=== PATIENT | male | born 1960 | race Caucasian/White ===

== ENCOUNTER → 2018-02-16 | Outpatient (CLI) | payer OTHER | LOC: M LAB 14:13 | DX: N20.0 Calculus of kidney (principal) | CPT/HCPCS: 74018 ==

== ENCOUNTER 2022-10-30 19:21 | Inpatient (IN) | payer OTHER ==
[2022-10-30] MEDS ORDERED: NS 1,000 ML IV ONE (19:25)
[2022-10-30 19:46] LABS: VENOUS BASE EXCESS -0.4 (-2.0-2.0); VENOUS HCO3 24.9 MMOL/L (23.0-27.0); VENOUS O2 SATURATION 94.4 % (60.0-80.0); VENOUS PARTIAL PRESSURE CO2 43.1 mmHg (38.0-50.0); VENOUS PARTIAL PRESSURE O2 71.4 mmHg (30.0-50.0); VENOUS TOTAL CO2 26.2 MMOL/L (24.0-28.0)
[2022-10-30 19:48] LABS: BASO # 0.1 10^3/uL (0.0-0.2); BASO % 0.7 % (0.0-1.0); EOS # 0.1 10^3/uL (0.0-0.5); EOS % 0.6 % (0.0-3.0); HEMATOCRIT 50.5 % (42.0-52.0); HEMOGLOBIN 17.4 g/dl (13.5-17.5); LYMPH # 1.8 10^3/uL (1.5-5.0); LYMPH % 16.6 % (24.0-44.0); MEAN CORPUSCULAR HEMOGLOBIN 30.6 pg (27.0-33.0); MEAN CORPUSCULAR HGB CONC 34.5 g/dl (32.0-36.5); MEAN CORPUSCULAR VOLUME 88.9 fl (80.0-96.0); MONO # 0.8 10^3/uL (0.0-0.8); MONO % 7.4 % (2.0-8.0); NEUTROPHILS # 8.2 10^3/uL (1.5-8.5); NEUTROPHILS % 74.1 % (36.0-66.0); PLATELET COUNT, AUTOMATED 208 10^3/uL (150-450); RED BLOOD COUNT 5.68 10^6/uL (4.30-6.10); WHITE BLOOD COUNT 11.1 10^3/uL (4.0-10.0)
[2022-10-30] MEDS ORDERED: CHARCOAL ACTIVATED LIQUID 25GM/120ML BTL PO ONE (20:10)
[2022-10-30 20:13] LABS: ETHYL ALCOHOL (ETHANOL) < 0.003 % (0.000-0.010)
[2022-10-30 20:16] LABS: ACETAMINOPHEN LEVEL < 2.0 UG/ML (10.0-20.0); ALBUMIN 3.9 G/DL (3.2-5.2); ALKALINE PHOSPHATASE 76 U/L (46-116); ALT/SGPT 25 U/L (7.0-40); AST/SGOT 13 U/L (<34); BILIRUBIN,DIRECT 0.2 MG/DL (<0.4); BILIRUBIN,TOTAL 0.4 MG/DL (0.3-1.2); BLOOD UREA NITROGEN 18 MG/DL (9-23); CALCIUM LEVEL 8.9 MG/DL (8.3-10.6); CARBON DIOXIDE LEVEL 26 MMOL/L (20-31); CHLORIDE LEVEL 103 MMOL/L (98-107); CREATININE FOR GFR 0.94 MG/DL (0.70-1.30); GLOMERULAR FILTRATION RATE > 60.0 (>49); GLUCOSE, FASTING 102 MG/DL (74-106); POTASSIUM SERUM 3.9 MMOL/L (3.5-5.1); SALICYLATE LEVEL < 3.0 MG/DL (<30); SODIUM LEVEL 138 MMOL/L (136-145); TOTAL PROTEIN 7.1 G/DL (5.7-8.2)
[2022-10-30 20:17] LABS: THYROID STIMULATING HORMONE 2.392 uIU/ML (0.55-4.78)
[2022-10-30 20:21] LABS: CPK CREATINE PHOSPHOKINASE 116 U/L (46-171)
[2022-10-30 20:26] LABS: AMPHETAMINES LEVEL URINE NEGATIVE (NEGATIVE); BARBITURATES URINE NEGATIVE (NEGATIVE); BENZODIAZEPINES URINE NEGATIVE (NEGATIVE); CANNABINOIDS URINE NEGATIVE (NEGATIVE); COCAINE METABOLITE URINE NEGATIVE (NEGATIVE); METHADONE URINE NEGATIVE (NEGATIVE); OPIATES URINE NEGATIVE (NEGATIVE); PHENCYCLIDINE URINE NEGATIVE (NEGATIVE)
[2022-10-30] MEDS ORDERED: MAG SULF 1GM/100ML (MAG RUN) 1 GM in IV 1 EA IV ONE ×2 (21:40→22:15)
[2022-10-30] MEDS ORDERED: XALA0.007 OU (23:11)
[2022-10-30] MEDS ORDERED: TIMOLOL 0.5% OU (23:11)
[2022-10-30] MEDS ORDERED: LEXA1TAB2 PO (23:11)
[2022-10-30] MEDS ORDERED: SIMV20TA22 PO (23:13)
[2022-10-30] MEDS ORDERED: LANS30CA93 PO (23:13)
[2022-10-30] MEDS ORDERED: ALFU10TA3 PO (23:13)
[2022-10-30] MEDS ORDERED: CARD120C3 PO (23:13)
[2022-10-30] MEDS ORDERED: LEVO50TA5 PO (23:13)
[2022-10-30] MEDS ORDERED: HOME MED LIST COMPLETE! XX SCH (23:20)
[2022-10-31] MEDS: LEVOTHYROXINE 50MCG TABLET (0.05MG) PO SCH (06:00)
[2022-10-31] MEDS ORDERED: HEPARIN SOD (PORCINE) 5000UNITS/ML 1ML VIAL/SYRINGE SC SCH (06:00)
[2022-10-31 06:15] LABS: HEMATOCRIT 49.4 % (42.0-52.0); HEMOGLOBIN 17.2 g/dl (13.5-17.5); MEAN CORPUSCULAR HGB CONC 34.8 g/dl (32.0-36.5); MEAN CORPUSCULAR VOLUME 89.2 fl (80.0-96.0); PLATELET COUNT, AUTOMATED 216 10^3/uL (150-450); RED BLOOD COUNT 5.54 10^6/uL (4.30-6.10)
[2022-10-31 06:39] LABS: ALBUMIN 3.6 G/DL (3.2-5.2); ALKALINE PHOSPHATASE 75 U/L (46-116); ALT/SGPT 25 U/L (7.0-40); AST/SGOT 18 U/L (<34); BILIRUBIN,TOTAL 0.5 MG/DL (0.3-1.2); BLOOD UREA NITROGEN 11 MG/DL (9-23); CALCIUM LEVEL 8.3 MG/DL (8.3-10.6); CARBON DIOXIDE LEVEL 25 MMOL/L (20-31); CHLORIDE LEVEL 106 MMOL/L (98-107); CREATININE FOR GFR 0.84 MG/DL (0.70-1.30); GLOMERULAR FILTRATION RATE > 60.0 (>49); GLUCOSE, FASTING 110 MG/DL (74-106); MAGNESIUM LEVEL 2.5 MG/DL (1.8-2.4); POTASSIUM SERUM 3.9 MMOL/L (3.5-5.1); SODIUM LEVEL 140 MMOL/L (136-145); TOTAL PROTEIN 6.7 G/DL (5.7-8.2)
[2022-10-31] MEDS: dilTIAZem 120MG **CD** CAPSULE PO SCH (09:10)
[2022-10-31] MEDS: SIMVASTATIN 20 MG TAB PO SCH (09:10)
[2022-10-31] MEDS: DOCUSATE SODIUM 100MG CAPSULE PO SCH ×2 (09:10→20:27)
[2022-10-31] MEDS: ENOXAPARIN 40MG/0.4ML SYRINGE (J1650 PER 10MG) SC SCH (09:11)
[2022-10-31 13:14] VITALS: BP 172/62; TEMP 97.8; O2SAT 93
[2022-10-31] MEDS: MOM 30ML SUSPENSION UDC PO PRN (16:40)
[2022-10-31] MEDS: LATANOPROST 0.005% OPHTH SOLN 2.5 ML OU SCH (20:27)
[2022-10-31 21:10] VITALS: BP 152/77; TEMP 96.7; O2SAT 96
[2022-11-01 04:34] VITALS: BP 149/83; TEMP 99.6
[2022-11-01] MEDS: LEVOTHYROXINE 50MCG TABLET (0.05MG) PO SCH (05:46)
[2022-11-01 07:52] LABS: BASO # 0.1 10^3/uL (0.0-0.2); BASO % 0.6 % (0.0-1.0); EOS % 0.2 % (0.0-3.0); HEMATOCRIT 51.7 % (42.0-52.0); HEMOGLOBIN 17.9 g/dl (13.5-17.5); LYMPH # 2.1 10^3/uL (1.5-5.0); MEAN CORPUSCULAR HEMOGLOBIN 31.1 pg (27.0-33.0); MEAN CORPUSCULAR HGB CONC 34.6 g/dl (32.0-36.5); MEAN CORPUSCULAR VOLUME 89.9 fl (80.0-96.0); MONO # 1.3 10^3/uL (0.0-0.8); MONO % 8.4 % (2.0-8.0); NEUTROPHILS # 12.3 10^3/uL (1.5-8.5); NEUTROPHILS % 77.1 % (36.0-66.0); PLATELET COUNT, AUTOMATED 221 10^3/uL (150-450); RED BLOOD COUNT 5.75 10^6/uL (4.30-6.10); WHITE BLOOD COUNT 15.9 10^3/uL (4.0-10.0)
[2022-11-01 07:59] VITALS: BP 146/82; TEMP 96.7; O2SAT 94
[2022-11-01] MEDS: SIMVASTATIN 20 MG TAB PO SCH (08:05)
[2022-11-01] MEDS: PANTOPRAZOLE 40MG TAB (PROTONIX) PO SCH (08:05)
[2022-11-01] MEDS: DOCUSATE SODIUM 100MG CAPSULE PO SCH ×2 (08:05→21:17)
[2022-11-01] MEDS: ENOXAPARIN 40MG/0.4ML SYRINGE (J1650 PER 10MG) SC SCH (08:05)
[2022-11-01] MEDS: dilTIAZem 120MG **CD** CAPSULE PO SCH (08:05)
[2022-11-01 08:15] LABS: BLOOD UREA NITROGEN 14 MG/DL (9-23); CALCIUM LEVEL 8.8 MG/DL (8.3-10.6); CARBON DIOXIDE LEVEL 28 MMOL/L (20-31); CHLORIDE LEVEL 104 MMOL/L (98-107); CREATININE FOR GFR 0.88 MG/DL (0.70-1.30); GLOMERULAR FILTRATION RATE > 60.0 (>49); GLUCOSE, FASTING 100 MG/DL (74-106); POTASSIUM SERUM 4.3 MMOL/L (3.5-5.1); SODIUM LEVEL 140 MMOL/L (136-145)
[2022-11-01 19:56] VITALS: BP 149/84; TEMP 97.7; O2SAT 94
[2022-11-01] MEDS: LATANOPROST 0.005% OPHTH SOLN 2.5 ML OU SCH (21:16)
[2022-11-01] MEDS: TAMSULOSIN 0.4 MG CAP PO SCH (21:17)
[2022-11-02 04:00] VITALS: BP 119/70; TEMP 98.1; O2SAT 95
[2022-11-02] MEDS: LEVOTHYROXINE 50MCG TABLET (0.05MG) PO SCH (06:38)
[2022-11-02 08:59] VITALS: BP 135/74; TEMP 96.6; O2SAT 93
[2022-11-02] MEDS: dilTIAZem 120MG **CD** CAPSULE PO SCH (10:01)
[2022-11-02] MEDS: PANTOPRAZOLE 40MG TAB (PROTONIX) PO SCH (10:01)
[2022-11-02] MEDS: DOCUSATE SODIUM 100MG CAPSULE PO SCH ×2 (10:01→21:11)
[2022-11-02] MEDS: SIMVASTATIN 20 MG TAB PO SCH (10:01)
[2022-11-02] MEDS: MOM 30ML SUSPENSION UDC PO PRN (10:02)
[2022-11-02] MEDS: ENOXAPARIN 40MG/0.4ML SYRINGE (J1650 PER 10MG) SC SCH (10:03)
[2022-11-02 16:20] VITALS: BP 138/74; TEMP 96.8; O2SAT 94
[2022-11-02] MEDS: TAMSULOSIN 0.4 MG CAP PO SCH (21:11)
[2022-11-02] MEDS: LATANOPROST 0.005% OPHTH SOLN 2.5 ML OU SCH (21:11)
[2022-11-03] VITALS: BP 133/80; TEMP 97.8; O2SAT 96
[2022-11-03] MEDS: LEVOTHYROXINE 50MCG TABLET (0.05MG) PO SCH (06:02)
[2022-11-03 08:15] VITALS: BP 127/67; TEMP 96.5; O2SAT 94
[2022-11-03 09:47] VITALS: BP 127/67
[2022-11-03] MEDS: PANTOPRAZOLE 40MG TAB (PROTONIX) PO SCH (09:47)
[2022-11-03] MEDS: dilTIAZem 120MG **CD** CAPSULE PO SCH (09:47)
[2022-11-03] MEDS: DOCUSATE SODIUM 100MG CAPSULE PO SCH (09:47)
[2022-11-03] MEDS: ENOXAPARIN 40MG/0.4ML SYRINGE (J1650 PER 10MG) SC SCH (09:48)
[2022-11-03] MEDS: SIMVASTATIN 20 MG TAB PO SCH (09:48)
== END 2022-11-03 14:35 | disposition other institution (70) | DRG 918 ==
LOC: M ED 19:21 → M ED INP 23:32 → M PCU 10-31 13:04
PROVIDERS: ADMIT Family Medicine; ATTEND Family Medicine
DX: T43.202A Poisoning by unspecified antidepressants, intentional self-harm, initial encounter (principal); F33.3 Major depressive disorder, recurrent, severe with psychotic symptoms; T14.91XA Suicide attempt, initial encounter; I10 Essential (primary) hypertension; E78.5 Hyperlipidemia, unspecified; E03.9 Hypothyroidism, unspecified; F32.A Depression, unspecified; F03.90 Unspecified dementia, unspecified severity, without behavioral disturbance, psychotic disturbance, mood disturbance, and anxiety; H40.9 Unspecified glaucoma; K21.9 Gastro-esophageal reflux disease without esophagitis; J45.909 Unspecified asthma, uncomplicated; M19.90 Unspecified osteoarthritis, unspecified site; N41.9 Inflammatory disease of prostate, unspecified; Z20.822 Contact with and (suspected) exposure to COVID-19; Z79.890 Hormone replacement therapy; Z79.899 Other long term (current) drug therapy; Z88.1 Allergy status to other antibiotic agents; Z88.8 Allergy status to other drugs, medicaments and biological substances

== ENCOUNTER 2022-11-03 12:49 | Inpatient (IN) | payer OTHER ==
[~2022-11-03] VITALS: Ht 177.8 cm; Wt 99.8 kg
[2022-11-03] MEDS: NICOTINE 14 MG/24 HR TRANSDERMAL TD SCH (09:00)
[~2022-11-03 12:49] MED LIST: ALFU10TA3 PO; CARD120C3 PO; LANS30CA93 PO; LEVO50TA5 PO; LEXA1TAB2 PO; SIMV20TA22 PO; TIMOLOL 0.5% OU; XALA0.007 OU
[2022-11-03] MEDS ORDERED: MAALOX 30 ML SUSP *UDC PO PRN (12:55)
[2022-11-03] MEDS ORDERED: IBUPROFEN 400MG TAB PO PRN (12:55)
[2022-11-03] MEDS ORDERED: MOM 30ML SUSPENSION UDC PO PRN (12:55)
[2022-11-03] MEDS ORDERED: diphenhydrAMINE 25MG CAP PO PRN (12:55)
[2022-11-03 15:49] VITALS: BP 157/79; TEMP 97
[2022-11-03] MEDS: traZODone 50 MG TAB PO PRN (21:06)
[2022-11-03] MEDS: TAMSULOSIN 0.4 MG CAP PO SCH (21:06)
[2022-11-03] MEDS: LATANOPROST 0.005% OPHTH SOLN 2.5 ML OU SCH (23:55)
[2022-11-04] MEDS: LEVOTHYROXINE 50MCG TABLET (0.05MG) PO SCH (06:12)
[2022-11-04 06:27] VITALS: BP 131/77; TEMP 98.2; O2SAT 95
[2022-11-04] MEDS: SIMVASTATIN 20 MG TAB PO SCH (08:59)
[2022-11-04] MEDS: PANTOPRAZOLE 40MG TAB (PROTONIX) PO SCH (08:59)
[2022-11-04] MEDS: dilTIAZem 120MG **CD** CAPSULE PO SCH (08:59)
[2022-11-04] MEDS: NICOTINE 14 MG/24 HR TRANSDERMAL TD SCH (09:00)
[2022-11-04] MEDS: VENLAFAXINE **XR** 37.5 MG CAPSULE PO SCH (12:08)
[2022-11-04] MEDS: ACETAMINOPHEN TAB 650MG DOSE (2X325MG) PO PRN (17:13)
[2022-11-04 18:26] VITALS: BP 129/84; TEMP 97.8; O2SAT 97
[2022-11-04] MEDS: TAMSULOSIN 0.4 MG CAP PO SCH (20:18)
[2022-11-04] MEDS: LATANOPROST 0.005% OPHTH SOLN 2.5 ML OU SCH (20:24)
[2022-11-04] MEDS ORDERED: ARIPiprazole 2 MG TAB PO SCH (21:00)
[2022-11-05] MEDS: LEVOTHYROXINE 50MCG TABLET (0.05MG) PO SCH (06:15)
[2022-11-05 07:14] VITALS: BP 123/68; TEMP 96; O2SAT 95
[2022-11-05] MEDS ORDERED: OMEPRAZOLE 20MG CAP PO SCH (09:00)
[2022-11-05] MEDS: SIMVASTATIN 20 MG TAB PO SCH (09:47)
[2022-11-05] MEDS: dilTIAZem 120MG **CD** CAPSULE PO SCH (09:48)
[2022-11-05] MEDS: VENLAFAXINE **XR** 37.5 MG CAPSULE PO SCH (09:48)
[2022-11-05] MEDS: PANTOPRAZOLE 40MG TAB (PROTONIX) PO SCH (09:48)
[2022-11-05 09:55] VITALS: BP 128/74
[2022-11-05] MEDS: NICOTINE 14 MG/24 HR TRANSDERMAL TD SCH (09:56)
[2022-11-05 18:11] VITALS: BP 162/90; TEMP 98.1; O2SAT 96
[2022-11-05] MEDS: TAMSULOSIN 0.4 MG CAP PO SCH (21:01)
[2022-11-05] MEDS: OLANZapine 5 MG TAB PO SCH (21:01)
[2022-11-05] MEDS: LATANOPROST 0.005% OPHTH SOLN 2.5 ML OU SCH (21:01)
[2022-11-05] MEDS: ACETAMINOPHEN TAB 650MG DOSE (2X325MG) PO PRN (22:08)
[2022-11-06] MEDS: LEVOTHYROXINE 50MCG TABLET (0.05MG) PO SCH (05:54)
[2022-11-06 06:23] VITALS: BP 137/88; TEMP 97; O2SAT 95
[2022-11-06] MEDS: NICOTINE 14 MG/24 HR TRANSDERMAL TD SCH (09:00)
[2022-11-06] MEDS: PANTOPRAZOLE 40MG TAB (PROTONIX) PO SCH (09:47)
[2022-11-06] MEDS: dilTIAZem 120MG **CD** CAPSULE PO SCH (09:48)
[2022-11-06] MEDS: VENLAFAXINE **XR** 37.5 MG CAPSULE PO SCH (09:48)
[2022-11-06] MEDS: SIMVASTATIN 20 MG TAB PO SCH (09:48)
[2022-11-06] MEDS: LATANOPROST 0.005% OPHTH SOLN 2.5 ML OU SCH (21:35)
[2022-11-06] MEDS: traZODone 50 MG TAB PO PRN (21:35)
[2022-11-06] MEDS: OLANZapine 5 MG TAB PO SCH (21:35)
[2022-11-06] MEDS: TAMSULOSIN 0.4 MG CAP PO SCH (21:35)
[2022-11-07] MEDS: LEVOTHYROXINE 50MCG TABLET (0.05MG) PO SCH (05:35)
[2022-11-07 06:15] VITALS: BP 160/104; TEMP 97.5; O2SAT 96
[2022-11-07] MEDS: NICOTINE 14 MG/24 HR TRANSDERMAL TD SCH (09:00)
[2022-11-07] MEDS: PANTOPRAZOLE 40MG TAB (PROTONIX) PO SCH (09:52)
[2022-11-07] MEDS: VENLAFAXINE **XR** 37.5 MG CAPSULE PO SCH (09:52)
[2022-11-07] MEDS: SIMVASTATIN 20 MG TAB PO SCH (09:52)
[2022-11-07] MEDS: dilTIAZem 120MG **CD** CAPSULE PO SCH (10:02)
[2022-11-07 10:14] VITALS: BP 130/82
[2022-11-07 16:13] VITALS: BP 119/68; TEMP 97.6; O2SAT 98
[2022-11-07] MEDS: LATANOPROST 0.005% OPHTH SOLN 2.5 ML OU SCH (21:43)
[2022-11-07] MEDS: traZODone 50 MG TAB PO PRN (21:43)
[2022-11-07] MEDS: OLANZapine 5 MG TAB PO SCH (21:43)
[2022-11-07] MEDS: TAMSULOSIN 0.4 MG CAP PO SCH (21:44)
[2022-11-08] MEDS: LEVOTHYROXINE 50MCG TABLET (0.05MG) PO SCH (05:31)
[2022-11-08 06:18] VITALS: BP 146/78; TEMP 98.3; O2SAT 96
[2022-11-08] MEDS: SIMVASTATIN 20 MG TAB PO SCH (09:46)
[2022-11-08] MEDS: VENLAFAXINE **XR** 75MG CAPSULE PO SCH (09:47)
[2022-11-08] MEDS: PANTOPRAZOLE 40MG TAB (PROTONIX) PO SCH (09:47)
[2022-11-08] MEDS: dilTIAZem 120MG **CD** CAPSULE PO SCH (09:56)
[2022-11-08 17:06] VITALS: BP 163/89; TEMP 97.1; O2SAT 95
[2022-11-08] MEDS: LATANOPROST 0.005% OPHTH SOLN 2.5 ML OU SCH (21:10)
[2022-11-08] MEDS: OLANZapine 5 MG TAB PO SCH (21:10)
[2022-11-08] MEDS: TAMSULOSIN 0.4 MG CAP PO SCH (21:10)
[2022-11-08] MEDS: traZODone 50 MG TAB PO PRN (21:10)
[2022-11-09] MEDS: LEVOTHYROXINE 50MCG TABLET (0.05MG) PO SCH (05:30)
[2022-11-09 06:47] VITALS: BP 136/88; TEMP 97.4; O2SAT 94
[2022-11-09] MEDS: dilTIAZem 120MG **CD** CAPSULE PO SCH (09:29)
[2022-11-09] MEDS: SIMVASTATIN 20 MG TAB PO SCH (09:29)
[2022-11-09] MEDS: VENLAFAXINE **XR** 75MG CAPSULE PO SCH (09:30)
[2022-11-09] MEDS: PANTOPRAZOLE 40MG TAB (PROTONIX) PO SCH (09:30)
[2022-11-09 16:17] VITALS: BP 113/67; TEMP 97.6; O2SAT 95
[2022-11-09] MEDS: ACETAMINOPHEN TAB 650MG DOSE (2X325MG) PO PRN (19:16)
[2022-11-09] MEDS: LATANOPROST 0.005% OPHTH SOLN 2.5 ML OU SCH (21:24)
[2022-11-09] MEDS: TAMSULOSIN 0.4 MG CAP PO SCH (21:24)
[2022-11-09] MEDS: OLANZapine 5 MG TAB PO SCH (21:24)
[2022-11-10] MEDS: LEVOTHYROXINE 50MCG TABLET (0.05MG) PO SCH (05:50)
[2022-11-10 06:17] VITALS: BP 154/87; TEMP 97.8; O2SAT 96
[2022-11-10] MEDS: dilTIAZem 120MG **CD** CAPSULE PO SCH (08:25)
[2022-11-10] MEDS: PANTOPRAZOLE 40MG TAB (PROTONIX) PO SCH (08:25)
[2022-11-10] MEDS: VENLAFAXINE **XR** 75MG CAPSULE PO SCH (08:25)
[2022-11-10] MEDS: SIMVASTATIN 20 MG TAB PO SCH (08:25)
[2022-11-10 16:40] VITALS: BP 133/83; TEMP 97.6; O2SAT 96
[2022-11-10] MEDS: TAMSULOSIN 0.4 MG CAP PO SCH (20:28)
[2022-11-10] MEDS: OLANZapine 5 MG TAB PO SCH (20:28)
[2022-11-10] MEDS: LATANOPROST 0.005% OPHTH SOLN 2.5 ML OU SCH (20:28)
[2022-11-11] MEDS: LEVOTHYROXINE 50MCG TABLET (0.05MG) PO SCH (05:56)
[2022-11-11 06:22] VITALS: BP 124/84; TEMP 98.2; O2SAT 98
[2022-11-11] MEDS: SIMVASTATIN 20 MG TAB PO SCH (08:51)
[2022-11-11] MEDS: PANTOPRAZOLE 40MG TAB (PROTONIX) PO SCH (08:51)
[2022-11-11] MEDS: dilTIAZem 120MG **CD** CAPSULE PO SCH (08:51)
[2022-11-11] MEDS: VENLAFAXINE **XR** 75MG CAPSULE PO SCH (08:51)
[2022-11-11 16:35] VITALS: BP 112/62; TEMP 98.1; O2SAT 97
[2022-11-11] MEDS: LATANOPROST 0.005% OPHTH SOLN 2.5 ML OU SCH (20:52)
[2022-11-11] MEDS: TAMSULOSIN 0.4 MG CAP PO SCH (20:52)
[2022-11-11] MEDS: OLANZapine 5 MG TAB PO SCH (20:52)
[2022-11-12] MEDS: LEVOTHYROXINE 50MCG TABLET (0.05MG) PO SCH (05:30)
[2022-11-12 05:48] VITALS: BP 135/80; TEMP 98; O2SAT 95
[2022-11-12] MEDS: SIMVASTATIN 20 MG TAB PO SCH (09:01)
[2022-11-12] MEDS: PANTOPRAZOLE 40MG TAB (PROTONIX) PO SCH (09:01)
[2022-11-12] MEDS: VENLAFAXINE **XR** 75MG CAPSULE PO SCH (09:01)
[2022-11-12] MEDS: dilTIAZem 120MG **CD** CAPSULE PO SCH (09:02)
[2022-11-12] MEDS ORDERED: TIMO0.5S39 OU (09:25)
[2022-11-12] MEDS: TIMOLOL XE GFS 0.5% OPHTH 5 ML OU SCH (13:29)
[2022-11-12 17:58] VITALS: BP 157/83; TEMP 97.1; O2SAT 95
[2022-11-12 18:35] VITALS: BP 132/88
[2022-11-12] MEDS: TAMSULOSIN 0.4 MG CAP PO SCH (20:29)
[2022-11-12] MEDS: OLANZapine 5 MG TAB PO SCH (20:29)
[2022-11-12] MEDS: LATANOPROST 0.005% OPHTH SOLN 2.5 ML OU SCH (20:31)
[2022-11-12] MEDS ORDERED: TIMOLOL XE GFS 0.5% OPHTH 5 ML OU SCH (21:00)
[2022-11-13] MEDS: LEVOTHYROXINE 50MCG TABLET (0.05MG) PO SCH (05:32)
[2022-11-13 06:30] VITALS: BP 145/84; TEMP 97.3; O2SAT 100
[2022-11-13 09:47] VITALS: BP 123/71
[2022-11-13] MEDS: PANTOPRAZOLE 40MG TAB (PROTONIX) PO SCH (09:50)
[2022-11-13] MEDS: SIMVASTATIN 20 MG TAB PO SCH (09:50)
[2022-11-13] MEDS: VENLAFAXINE **XR** 75MG CAPSULE PO SCH (09:50)
[2022-11-13] MEDS: TIMOLOL XE GFS 0.5% OPHTH 5 ML OU SCH (09:51)
[2022-11-13] MEDS: dilTIAZem 120MG **CD** CAPSULE PO SCH (09:51)
[2022-11-13] MEDS: ACETAMINOPHEN TAB 650MG DOSE (2X325MG) PO PRN (16:56)
[2022-11-13] MEDS ORDERED: ACETAMINOPHEN 500 MG TAB PO PRN (17:55)
[2022-11-13 19:04] VITALS: BP 156/73; TEMP 97.9
[2022-11-13] MEDS: TAMSULOSIN 0.4 MG CAP PO SCH (20:31)
[2022-11-13] MEDS: OLANZapine 5 MG TAB PO SCH (20:31)
[2022-11-13] MEDS: LATANOPROST 0.005% OPHTH SOLN 2.5 ML OU SCH (20:31)
[2022-11-14] MEDS: LEVOTHYROXINE 50MCG TABLET (0.05MG) PO SCH (05:46)
[2022-11-14 06:24] VITALS: BP 141/81; TEMP 96.8; O2SAT 99
[2022-11-14] MEDS: PANTOPRAZOLE 40MG TAB (PROTONIX) PO SCH (08:48)
[2022-11-14] MEDS: SIMVASTATIN 20 MG TAB PO SCH (08:48)
[2022-11-14] MEDS: VENLAFAXINE **XR** 75MG CAPSULE PO SCH (08:49)
[2022-11-14] MEDS: dilTIAZem 120MG **CD** CAPSULE PO SCH (08:49)
[2022-11-14] MEDS: TIMOLOL XE GFS 0.5% OPHTH 5 ML OU SCH (08:49)
[2022-11-14 18:12] VITALS: BP 139/78; TEMP 97.6; O2SAT 98
[2022-11-14] MEDS: TAMSULOSIN 0.4 MG CAP PO SCH (19:56)
[2022-11-14] MEDS: OLANZapine 5 MG TAB PO SCH (19:56)
[2022-11-14] MEDS: LATANOPROST 0.005% OPHTH SOLN 2.5 ML OU SCH (20:37)
[2022-11-15] MEDS: LEVOTHYROXINE 50MCG TABLET (0.05MG) PO SCH (05:49)
[2022-11-15 06:50] VITALS: BP 143/90; TEMP 98; O2SAT 99
[2022-11-15] MEDS: PANTOPRAZOLE 40MG TAB (PROTONIX) PO SCH (08:31)
[2022-11-15] MEDS: dilTIAZem 120MG **CD** CAPSULE PO SCH (08:31)
[2022-11-15] MEDS: VENLAFAXINE **XR** 75MG CAPSULE PO SCH (08:31)
[2022-11-15] MEDS: SIMVASTATIN 20 MG TAB PO SCH (08:31)
[2022-11-15] MEDS: TIMOLOL XE GFS 0.5% OPHTH 5 ML OU SCH (08:32)
[2022-11-15 18:52] VITALS: BP 169/95; TEMP 97.2; O2SAT 99
[2022-11-15] MEDS: OLANZapine 5 MG TAB PO SCH (20:39)
[2022-11-15] MEDS: TAMSULOSIN 0.4 MG CAP PO SCH (20:39)
[2022-11-15] MEDS: LATANOPROST 0.005% OPHTH SOLN 2.5 ML OU SCH (20:39)
[2022-11-15] MEDS: traZODone 50 MG TAB PO PRN (21:26)
[2022-11-16] MEDS: LEVOTHYROXINE 50MCG TABLET (0.05MG) PO SCH (05:31)
[2022-11-16 06:48] VITALS: BP 140/73; TEMP 97.9; O2SAT 97
[2022-11-16] MEDS: PANTOPRAZOLE 40MG TAB (PROTONIX) PO SCH (08:50)
[2022-11-16] MEDS: SIMVASTATIN 20 MG TAB PO SCH (08:50)
[2022-11-16] MEDS: dilTIAZem 120MG **CD** CAPSULE PO SCH (08:51)
[2022-11-16] MEDS: TIMOLOL XE GFS 0.5% OPHTH 5 ML OU SCH (08:51)
[2022-11-16] MEDS: VENLAFAXINE **XR** 75MG CAPSULE PO SCH (08:51)
[2022-11-16 17:14] VITALS: BP 143/82; TEMP 97
[2022-11-16] MEDS: OLANZapine 5 MG TAB PO SCH (20:12)
[2022-11-16] MEDS: TAMSULOSIN 0.4 MG CAP PO SCH (20:12)
[2022-11-16] MEDS: traZODone 50 MG TAB PO PRN (20:12)
[2022-11-16] MEDS: LATANOPROST 0.005% OPHTH SOLN 2.5 ML OU SCH (20:12)
[2022-11-17] MEDS: LEVOTHYROXINE 50MCG TABLET (0.05MG) PO SCH (05:34)
[2022-11-17 06:03] VITALS: BP 133/77; TEMP 97.7; O2SAT 96
[2022-11-17] MEDS: TIMOLOL XE GFS 0.5% OPHTH 5 ML OU SCH (08:28)
[2022-11-17] MEDS: PANTOPRAZOLE 40MG TAB (PROTONIX) PO SCH (08:28)
[2022-11-17] MEDS: SIMVASTATIN 20 MG TAB PO SCH (08:28)
[2022-11-17] MEDS: VENLAFAXINE **XR** 75MG CAPSULE PO SCH (08:28)
[2022-11-17 08:31] VITALS: BP 124/82
[2022-11-17] MEDS: dilTIAZem 120MG **CD** CAPSULE PO SCH (08:31)
[2022-11-17] MEDS ORDERED: VENL75CA47 PO (10:50)
[2022-11-17] MEDS ORDERED: FLOM0.4C39 PO (10:50)
[2022-11-17] MEDS ORDERED: PANT40TA29 PO (10:50)
[2022-11-17] MEDS ORDERED: OLAN1TAB16 PO (10:50)
[2022-11-17] MEDS ORDERED: TIMOLOL MALEATE 0.5% OU (10:50)
== END 2022-11-17 12:43 | disposition home or self-care (01) | DRG 885 ==
LOC: M PSY 12:50
PROVIDERS: ADMIT Student in an Organized Health Care Education/Training Program; ATTEND Student in an Organized Health Care Education/Training Program
DX: F33.2 Major depressive disorder, recurrent severe without psychotic features (principal); R45.851 Suicidal ideations; I10 Essential (primary) hypertension; Z88.8 Allergy status to other drugs, medicaments and biological substances; Z79.899 Other long term (current) drug therapy; G47.00 Insomnia, unspecified; E78.5 Hyperlipidemia, unspecified; E03.9 Hypothyroidism, unspecified; K21.9 Gastro-esophageal reflux disease without esophagitis

== ENCOUNTER 2023-07-07 09:22 | Emergency (ER) | payer MEDICARE, OTHER ==
[~2023-07-07] VITALS: Ht 177.8 cm; Wt 100.5 kg
[~2023-07-07 09:22] MED LIST changes: +FLOM0.4C39 PO; +OLAN1TAB16 PO; +PANT40TA29 PO; +TIMO0.5S39 OU; +TIMOLOL MALEATE 0.5% OU; +VENL75CA47 PO
[2023-07-07] MEDS ORDERED: EFFE75CA2 PO (10:39)
[2023-07-07 10:57] LABS: BLOOD UREA NITROGEN 14 MG/DL (9-23); CARBON DIOXIDE LEVEL 29 MMOL/L (20-31); CHLORIDE LEVEL 102 MMOL/L (98-107); CREATININE FOR GFR 0.86 MG/DL (0.70-1.30); GLOMERULAR FILTRATION RATE > 60.0 (>49); GLUCOSE, FASTING 89 MG/DL (74-106); POTASSIUM SERUM 4.1 MMOL/L (3.5-5.1); SODIUM LEVEL 138 MMOL/L (136-145)
[2023-07-07 12:05] VITALS: BP 132/94; TEMP 98; O2SAT 97
== END 2023-07-07 12:08 | disposition home or self-care (01) ==
LOC: M ED 09:22
DX: F32.9 Major depressive disorder, single episode, unspecified (principal); I10 Essential (primary) hypertension; Z79.899 Other long term (current) drug therapy; Z88.1 Allergy status to other antibiotic agents; Z88.6 Allergy status to analgesic agent; Z88.8 Allergy status to other drugs, medicaments and biological substances